=== PATIENT | female | born 1990 | race Caucasian/White ===

== ENCOUNTER → 2020-01-18 12:25 | Outpatient (CLI) | payer MEDICAID, OTHER, SELFPAY ==
--- NOTE | 2020-01-18 12:32 | US_ITS ---
STUDY: FIRST TRIMESTER OBSTETRICAL ULTRASOUND REASON FOR EXAM: Female, 29 years old VIABILITY- hcg 2086 ON 01/17/20 LMP: 12/14/2019 TECHNIQUE: Transvaginal TECHNICAL QUALITY: Adequate. PRIOR ULTRASOUND: None. FINDINGS: There is a gestational sac in the lower uterine segment. The mean sac diameter (MSD) measures 5 mm, indicating an estimated gestational age (EGA) of 5 weeks, 0 days. The gestational sac shape is within normal limits. There is no demonstrated yolk sac. The placenta is non-visualized. There is no demonstrated embryo ( pole). The estimated gestation age (EGA) by LMP is 5 weeks, 0 days. The estimated date of delivery (RASHID) by LMP is 09/19/2020. The estimated gestation age (EGA) by US is 5 weeks, 0 days. The estimated date of delivery (RASHID) by US is 09/19/2020. The uterus measures 11 cm x 7 cm x 5.1 cm. There is no demonstrated uterine fibroid. The cervix is closed. The right ovary measures 4.5 cm x 2.5 cm x 2.7 cm. There is a 1.5 cm x 1.4 cm x 1.4 cm cystic density in the right ovary. There is no visualized right adnexal mass or complex lesion. The left ovary measures 3.6 cm x 2.9 cm x 3.2 cm. There is no left ovarian cyst. There is no visualized left adnexal mass or complex lesion. There is no fluid in the cul de sac. US/Init OB < 14Wks US IMPRESSION: Findings suggestive of an early intrauterine of 5 weeks. Cystic area in the right ovary. Follow-up ultrasound and correlation with serial beta hCGs is recommended. Electronically Signed: Aniceto Cody, at 13:41 EST , Service support ,
== END ==
PROVIDERS: PCP Family Medicine; Visit Provider Obstetrics & Gynecology
DX: O20.0 Threatened abortion (principal)
CPT/HCPCS: 76801

== ENCOUNTER → 2020-01-19 10:30 | Outpatient (CLI) | payer MEDICAID, OTHER, SELFPAY ==
[2020-01-18 13:14] VITALS: BMI 41.1
[2020-01-19 12:48] LABS: hCG Titer Quant., Serum 2921 mIU/mL (1-3)
== END ==
PROVIDERS: PCP Family Medicine; Referring Provider Obstetrics & Gynecology; Visit Provider Obstetrics & Gynecology
DX: O36.80X0 Pregnancy with inconclusive fetal viability, not applicable or unspecified (principal); Z3A.00 Weeks of gestation of pregnancy not specified
CPT/HCPCS: 36415; 84702

== ENCOUNTER → 2020-01-21 09:31 | Outpatient (CLI) | payer MEDICAID, OTHER, SELFPAY ==
[2020-01-18 13:14] VITALS: BMI 41.1
[2020-01-21 10:38] LABS: hCG Titer Quant., Serum 5537 mIU/mL (1-3)
== END ==
PROVIDERS: PCP Family Medicine; Referring Provider Obstetrics & Gynecology; Visit Provider Obstetrics & Gynecology
DX: O36.80X0 Pregnancy with inconclusive fetal viability, not applicable or unspecified (principal)
CPT/HCPCS: 36415; 84702

== ENCOUNTER → 2020-02-05 08:57 | Outpatient (CLI) | payer MEDICAID, OTHER, SELFPAY ==
[2020-01-18 13:14] VITALS: BMI 41.1
--- NOTE | 2020-02-05 08:59 | US_ITS ---
HISTORY: Assess viability. No current hCG available. Comparison study is an ultrasound from January 18, 2020. 105 images and two cine clips. Findings: The first cine clip demonstrates a gestational sac with a decidual reaction within the uterine fundus and the yolk sac, the embryo, and heart motion. The second cine clip demonstrates a similar finding but in the axial plane. Endovaginal imaging only: The uterus measures 12.5 x 6.1 by my measurement of 8.6 cm. Within the uterine fundus there is a gestational sac within the gestational sac there is an embryo and yolk sac. The right ovary measures 3.9 x 2.7 x 2.5 cm. A corpus luteal cyst is suggested on the right ovary. No large masses or fluid collections. The cervix is closed. The left ovary measures 4.3 x 3.4 x 3 cm. Follicles are present on the left ovary. Color Doppler imaging demonstrates flow to both ovaries. [place]-rump length is 11 mm. heart motion mammillated imaging is detected at 159 bpm. Mean sac diameter is 2.6 cm. US/Init OB < 14Wks US IMPRESSION: SLIUP. EGA based on crown-rump length is 7 W-2 D. RASHID is 09/21/2020. at [id number] Reported and signed by: Charlie Juarez MD Electronically Signed: Charlie Juarez MD at 5:27 EST Tel , Service support ,
== END ==
PROVIDERS: PCP Family Medicine; Referring Provider Obstetrics & Gynecology; Visit Provider Obstetrics & Gynecology
DX: Z34.90 Encounter for supervision of normal pregnancy, unspecified, unspecified trimester (principal)
CPT/HCPCS: 76801

== ENCOUNTER → 2022-06-17 | Outpatient (CLI) | payer OTHER, MEDICAID, SELFPAY ==
[2022-06-17 17:37] LABS: hCG Titer Quant., Serum 882 mIU/mL (1-3)
== END | disposition home or self-care (01) ==
LOC: LAB 16:49
PROVIDERS: PCP Family Medicine; Referring Provider Obstetrics & Gynecology; Visit Provider Obstetrics & Gynecology
DX: N91.2 Amenorrhea, unspecified (principal)
CPT/HCPCS: 36415; 84702

== ENCOUNTER → 2022-06-19 | Outpatient (CLI) | payer OTHER, MEDICAID, SELFPAY ==
[2022-06-19 17:50] LABS: hCG Titer Quant., Serum 1634 mIU/mL (1-3)
== END | disposition home or self-care (01) ==
LOC: LAB 16:36
PROVIDERS: PCP Family Medicine; Referring Provider Obstetrics & Gynecology; Visit Provider Obstetrics & Gynecology
DX: N91.2 Amenorrhea, unspecified (principal)
CPT/HCPCS: 36415; 84702

== ENCOUNTER → 2022-06-29 | Outpatient (CLI) | payer OTHER, MEDICAID, SELFPAY ==
--- NOTE | 2022-06-29 12:45 | US_ITS ---
INDICATION: STAT viability EXAMINATION: Ultrasound US OB Transvaginal TECHNIQUE: Transvaginal (for optimal evaluation of the adnexa) pelvic ultrasound was performed. Grayscale, spectral waveform, and color flow Doppler evaluation of the adnexa. COMPARISON: OB ultrasound from February 05, 2020 LMP: [Unknown Beta-hCG: Unknown FINDINGS: UTERUS: 11.3 x 7.1 x 6.7 cm. RIGHT OVARY: 4.6 x 3.9 x 3.5 cm. 2.9 x 2.5 x 2.4 cm cyst with increased peripheral vascularity may relate to a corpus luteal cyst. LEFT OVARY: 9.6 x 10.3 x 8.3 cm. There is a 6.7 x 7.3 x 6.3 cm cyst with somewhat complex appearance demonstrating somewhat irregular borders. FREE FLUID: None. INTRAUTERINE GESTATIONAL SAC(s) (size/shape): Single. Normal shape with mean sac diameter of 1.68 cm.. YOLK SAC: Identified POLE: Identified CRL 0.41 cm. ESTIMATED GESTATION AGE: 6 weeks 2 days. HEART MOTION: 115 bpm. PLACENTA: Not visualized due to age. SUBCHORIONIC HEMORRHAGE: None. US/Transvaginal w/Preg US IMPRESSION: Single live intrauterine . Estimated gestational age is 6 weeks 2 days.. 6.7 x 7.3 x 6.3 cm left ovarian cyst with somewhat complex appearance demonstrating irregular borders. Given size, further assessment with MRI is recommended. However, if MRI cannot be obtained close monitoring. 2.9 x 2.5 x 2.4 cm right ovarian corpus luteal cyst. Electronically Signed: Santana Merchant MD at 14:08 EDT ,
== END | disposition home or self-care (01) ==
LOC: OPUS 12:43
PROVIDERS: PCP Family Medicine; Referring Provider Obstetrics & Gynecology; Visit Provider Obstetrics & Gynecology
DX: O02.1 Missed abortion (principal)
CPT/HCPCS: 76817

== ENCOUNTER → 2022-07-13 | Outpatient (CLI) | payer MEDICAID, SELFPAY ==
[2022-07-15 04:07] LABS: Chlamydia By Nucleic Acid AMP Negative (Negative); Gonococcus By Nucleic Acid AMP Negative (Negative)
[2022-07-17 17:07] LABS: HPV APTIMA, High Risk Negative (Negative)
== END | disposition home or self-care (01) ==
LOC: LABSPEC 12:17
PROVIDERS: PCP Family Medicine; Referring Provider Obstetrics & Gynecology; Visit Provider Obstetrics & Gynecology
DX: Z34.90 Encounter for supervision of normal pregnancy, unspecified, unspecified trimester (principal)
CPT/HCPCS: 87491; 87591; 87624; 88175; G0145

== ENCOUNTER → 2022-07-22 | Outpatient (CLI) | payer OTHER, MEDICAID, SELFPAY ==
--- NOTE | 2022-07-22 07:57 | US_ITS ---
STUDY: FIRST TRIMESTER OBSTETRICAL ULTRASOUND REASON FOR EXAM: Female, 31 years old Rule out miscarriage LMP: May 15, 2022. TECHNIQUE: Transabdominal and Transvaginal TECHNICAL QUALITY: Adequate. PRIOR ULTRASOUND: None. FINDINGS: There is visualization of a single gestational sac in a normal intrauterine position. The mean sac diameter (MSD) measures 4.2 cm, indicating an estimated gestational age (EGA) of 9 weeks, 5 days. The gestational sac shape is within normal limits. There is a visualized yolk sac. The yolk sac measures 3 mm. The placenta is non-visualized. There is visualization of a live embryo. The crown-rump length (CRL) measures 2.9 cm, indicating an estimated gestational age (EGA) of 9 weeks, 3 days. There is demonstrated cardiac activity with a heart rate of 161 bpm. The estimated gestation age (EGA) by LMP is 9 weeks, 5 days. The estimated date of delivery (RASHID) by LMP is February 19, 2023. The estimated gestation age (EGA) by US is 9 weeks, 4 days. The estimated date of delivery (RASHID) by US is February 20, 2023. The uterus measures 14.7 cm x 9.6 cm x 8.3 cm. There is no demonstrated uterine fibroid. The cervix is closed. The right ovary measures 4.8 cm x 3.7 signed by 3.1 cm. There is a 3.3 cm x 2.9 cm x 2.5 cm cyst. There is no visualized right adnexal mass or complex lesion. The left ovary measures 8.4 cm x 9.2 cm x 8.3 cm. There is a 7.5 cm x 8 cm x 7.3 cm cyst. There is no visualized left adnexal mass or complex lesion. There is no fluid in the cul de sac. US/Transvaginal w/Preg US IMPRESSION: Single live intrauterine gestation with a mean gestational age of 9 weeks and 4 days. Bilateral ovarian cysts more prominent on the left side. Electronically Signed: Aniceto Cody MD at 10:13 EDT ,
[2022-07-22 09:35] LABS: Absolute Lymphocyte Count 1.77 X10^3/uL (0.83-4.51); Absolute Neutrophil Count 7.6 X10^3/uL (2.0-7.7); Basophil# 0.07 X10^3/uL; Basophil% 0.7 % (0-1); Eosinophil# 0.08 X10^3/uL; Eosinophils% 0.8 % (0-5); Hematocrit 32.2 % (37-47); Hemoglobin 9.9 g/dL (12.0-15.0); Lymphocyte # 1.77 X10^3/ul (0.83-4.51); Lymphocyte % 17.4 % (19-41); Mean Corp Hgb Conc 30.7 g/dL (32-36); Mean Corpuscular Volume 74.7 fL (81-99); Mean Platelet Vol. 10.4 fl (6.2-12.0); Monocyte# 0.56 X10^3/uL; Monocyte% 5.5 % (0-10); NRBC Flagged by Analyzer 0 % (0-5); Neutrophil # 7.64 X10^3/uL (2.7-7.7); Neutrophil % 75.3 % (47-70); Platelet Count 390 K/mm3 (150-450); RBC Distribution Width CV 18.1 % (11.6-14.6); RBC Distribution Width SD 49.2 fl (35.1-43.9); Red Blood Count 4.31 M/mm3 (4.2-5.4); White Blood Count 10.2 K/mm3 (4.4-11.0)
[2022-07-22 09:47] LABS: Protein, Urine (Random) 15.3 mg/dL (<11.9); Protein:Creat Ratio 133 mg/g CRE (0-200)
[2022-07-22 10:16] LABS: ALB/GLOB Ratio 0.6 RATIO (0.9-2.4); AST(SGOT) 17 U/L (15-37); Alanine Aminotransfer ALT/SGPT 21 U/L (13-56); Albumin, Serum 2.7 g/dL (3.2-5.0); Alkaline Phosphatase 93 U/L (45-117); Anion Gap 7 (5-15); BUN 9 mg/dL (7-18); BUN/Creat Ratio 15.8 RATIO (10-20); Calcium,Total 8.5 mg/dL (8.5-10.1); Chloride 109 mmol/L (98-107); Creatinine, Serum 0.57 mg/dL (0.55-1.02); EST Glomerular Filtration Rate 131 mL/min (>60); Est Glom Filt Rate - Afr Amer 159 mL/min (>60); Globulin 4.6 g/dL (2.2-4.2); Glucose 97 mg/dL (74-106); Potassium 3.6 mmol/L (3.5-5.1); Protein, Total 7.3 g/dL (6.4-8.2); Sodium Level 139 mmol/L (136-145)
[2022-07-22 11:18] LABS: HIV - WCH Non-Reactive (Nonreactive); Hepatitis B Surface Antigen Non-Reactive (Nonreactive); Hepatitis C Antibody Non-Reactive (Nonreactive); Rubella IgG Reactive (Nonreactive); Syphilis Antibodies Non-reactive
== END | disposition home or self-care (01) ==
PROVIDERS: Obstetrics & Gynecology; Registered Nurse; PCP Nurse Practitioner Family; Referring Provider Obstetrics & Gynecology; Visit Provider Obstetrics & Gynecology
DX: O16.1 Unspecified maternal hypertension, first trimester (principal); O20.0 Threatened abortion; Z3A.00 Weeks of gestation of pregnancy not specified
CPT/HCPCS: 36415; 76817; 80053; 82570; 84156; 85025; 86703; 86762; 86780; 86803; 86850; 86900; 86901; 87086; 87088; 87340

== ENCOUNTER → 2022-07-24 | Outpatient (CLI) | payer MEDICAID, SELFPAY ==
[2022-07-24 10:24] LABS: Glucose Challenge Gest 1H 50g 139 mg/dL (70-140)
[2022-07-24 10:33] LABS: NATERA MAILED SPECIMEN
== END | disposition home or self-care (01) ==
LOC: LAB 09:22
PROVIDERS: PCP Nurse Practitioner Family; Referring Provider Obstetrics & Gynecology; Visit Provider Obstetrics & Gynecology
DX: Z34.81 Encounter for supervision of other normal pregnancy, first trimester (principal); Z3A.00 Weeks of gestation of pregnancy not specified
CPT/HCPCS: 82950

== ENCOUNTER 2022-08-10 00:11 | Emergency (ER) | payer MEDICAID, SELFPAY ==
[2022-08-10 00:13] VITALS: BP 148/84; PULSE 102; RESP 16; TEMP 36.2; O2SAT 97; BMI 41.3
[2022-08-10 01:04] LABS: Absolute Lymphocyte Count 3.19 X10^3/uL (0.83-4.51); Absolute Neutrophil Count 8.7 X10^3/uL (2.0-7.7); Basophil# 0.09 X10^3/uL; Basophil% 0.7 % (0-1); Eosinophil# 0.12 X10^3/uL; Eosinophils% 0.9 % (0-5); Hematocrit 33.8 % (37-47); Hemoglobin 10.4 g/dL (12.0-15.0); Lymphocyte # 3.19 X10^3/ul (0.83-4.51); Lymphocyte % 24.9 % (19-41); Mean Corp Hgb Conc 30.8 g/dL (32-36); Mean Corpuscular Hgb 23.1 pg (27.0-32.0); Mean Corpuscular Volume 75.1 fL (81-99); Mean Platelet Vol. 10.3 fl (6.2-12.0); Monocyte# 0.72 X10^3/uL; Monocyte% 5.6 % (0-10); NRBC Flagged by Analyzer 0 % (0-5); Neutrophil # 8.65 X10^3/uL (2.7-7.7); Neutrophil % 67.6 % (47-70); Platelet Count 398 K/mm3 (150-450); RBC Distribution Width CV 18.3 % (11.6-14.6); RBC Distribution Width SD 49.6 fl (35.1-43.9); White Blood Count 12.8 K/mm3 (4.4-11.0)
[2022-08-10 01:10] LABS: Mucous, Urine 0 SEEN /hpf (<or=2+)
[2022-08-10 01:11] LABS: Color, Urine Yellow (Yellow); Glucose, Dipstick Normal (Normal); Ketone-Dipstick Negative (Negative); Leukocyte Esterase-Dipstick 100 /ul (Negative); Nitrite-Dipstick Negative (Negative); Occult Blood-Urine 250 /ul (Negative); Protein-Dipstick 30 mg/dl (Negative); Specific Gravity, Urine 1.025 (1.002-1.030); Urine Bilirubin Dipstick Negative (Negative); Urine Clarity Clear (Clear); Urine Urobilinogen 1 mg/dl (Normal)
[2022-08-10 01:17] LABS: Bacteria 1+ /hpf (None Seen); Red Blood Cells-Urine > 100 SEEN /hpf (0-5); Squamous Epithelial Cells - UA 0-5 SEEN /hpf (5-10); White Blood Cells 10-25 SEEN /hpf (0-5)
--- NOTE | 2022-08-10 01:32 | EDS_ITS ---
HPI HPI - Female History of Present Illness Chief Complaint: Vag Bld, Preg Informant: patient Bleeding Issue: Positive for Vaginal bleeding Onset: Today Context: Sudden Onset Timing: Continuous Associated Symptoms Associated Symptoms: Negative for Dysuria, Frequency or Urgency Test: Positive Narrative Narrative: Patient presents with vaginal bleeding that began tonight. Patient states she was having intercourse tonight and noted some bleeding after intercourse. Patient states it was a large amount of red blood. Patient is approximately 12 weeks . Patient denies any pain or cramping. Patient admits to some nausea but denies any vomiting. Patient denies any fevers or chills. Patient denies any urinary complaints. [facility] Medical History Gestational hypertension Home Medications multivitamin no.47-iron fum 27 mg-folate no.1 1 mg-dha 300 mg capsule (PNV-DHA) 1 cap PO DAILY 02/20/20 [History Last Taken Unknown] promethazine 12.5 mg tablet 12.5 mg PO TID PRN nausea and vomiting #60 tabs 06/18/22 [Rx Last Taken Unknown] ondansetron 4 mg disintegrating tablet 4 mg PO Q6H #30 tabs 06/26/22 [Rx Last Taken Unknown] pyridoxine (vitamin B6) 25 mg tablet 25 mg PO DAILY PRN nausea and vomiting 07/08/22 [History Last Taken Unknown] nifedipine 30 mg tablet,extended release 30 mg PO DAILY #30 tabs 07/13/22 [Rx Last Taken Unknown] Allergy/AdvReac Type Severity Reaction Status Date / Time No Known Allergies Allergy Verified 08/10/22 00:12 Surgical History S/P laparoscopy S/P tonsillectomy [place] teeth extracted Social History adopted: No household members: significant other and family number of children: 4 current occupational status: unemployed pets and animals: Yes pets and animals: dog(s) history of recent travel: No sexually active: Yes Smoking Status: Never smoker alcohol intake: never substance use type: does not use well-balanced diet: daily or most days caffeine: No eating out: rarely or never during the past year weight has: decreased > 10 lbs what type of physical activity do you participate in: walking frequency: daily duration: 60-90 minutes/day jose daniel/anglican: Taoist seatbelt use: always do you feel safe at home: Yes additional social history: [employer]- [employer] [facility] Patient is FIRE ENGINE OPERATOR ROS ROS ED Constitutional Constitutional ED: Denies chills or fever(s) Eyes Eyes: Denies blurry vision or change in vision ENT ENT ED: Denies rhinorrhea or sore throat Cardiovascular Cardiovascular: Denies chest pain or palpitations Respiratory/Chest Respiratory/Chest: Denies cough or dyspnea Gastrointestinal Gastrointestinal: Reports nausea; Denies vomiting Genitourinary Genitourinary ED: Denies dysuria or hematuria Musculoskeletal Musculoskeletal: Denies back pain or neck pain Integumentary Denies abscess or rash Neurologic Neurologic: Denies headache(s) or weakness Allergic/Immunologic Allergic/Immunologic ED: Denies mouth swelling or urticaria EXAM Physical Exam Const Vital Signs: 08/10/22 00:13 Temperature 97.2 F L Temperature Source Temporal Pulse Rate 102 H Respiratory Rate 16 Blood Pressure 148/84 H Blood Pressure Mean 105 Pulse Ox 97 Positive well nourished, well developed and obese General Appearance ED: well developed and NAD Nutritional Appearance: obese HEENT Reports moist mucous membranes Neck supple and no JVD Resp normal respiratory effort and clear to auscultation bilaterally Cardio regular rate and regular rhythm GI normal to inspection, nondistended, normoactive bowel sounds and non-tender Palpation: soft Extremity normal to inspection General Extremety ED: Negative for edema or tenderness General Extremity: Negative for edema Neuro oriented x3, CN's II-XII intact bilaterally and no sensory deficits noted Sensorium / Orientation: alert Motor Exam: strength 5/5 throughout Psych mental status grossly normal Skin no rashes or lesions noted MDM MDM MDM Narrative Medical decision making narrative: Differential diagnosis includes threatened miscarriage, placenta previa, spontaneous miscarriage, and urinary tract infection. CBC will be obtained to assess for leukocytosis and anemia. Urinalysis will be obtained to assess for urinary tract infection. Serum quantitative hCG will be obtained to assess for status. Lab Data Attestation: I reviewed the patient's lab results. Lab results narrative: CBC was reviewed. There is a mild leukocytosis of 12.8. Hemoglobin was 10.4 and hematocrit was 33.8. Platelets were normal. Quantitative hCG was reviewed and was 59,341. Urinalysis shows a leukocyte esterase of 100. There were greater than 100 red blood cells. There were 10-25 white blood cells. There is 1+ bacteria. Urine culture will be obtained. Labs: Laboratory Results - last 24 hr 08/10/22 08/10/22 00:50 01:04 WBC 12.8 H RBC 4.50 Hgb 10.4 L Hct 33.8 L MCV 75.1 L MCH 23.1 L MCHC 30.8 L RDW Std Deviation 49.6 H RDW Coeff of Del 18.3 H Plt Count 398 MPV 10.3 Immature Gran % (Auto) 0.300 Neut % (Auto) 67.6 Lymph % (Auto) 24.9 [place] % (Auto) 5.6 Eos % (Auto) 0.9 Baso % (Auto) 0.7 Absolute Neuts (auto) 8.7 H Absolute Lymphs (auto) 3.19 Nucleated RBC % 0 HCG, Quant 28210 H Urine Color Yellow Urine Clarity Clear Urine pH 6.0 Ur Specific [place] 1.025 Urine Protein 30 H Urine Glucose (UA) Normal Urine Ketones Negative Urine Occult Blood 250 H Urine Nitrite Negative Urine Bilirubin Negative Urine Urobilinogen 1 H Ur Leukocyte Esterase 100 H Urine RBC > 100 SEEN Urine WBC 10-25 SEEN Ur Squamous Epith Cells 0-5 SEEN Urine Bacteria 1+ Urine Mucus 0 SEEN Treatment and Re-Evaluation Narrative: heart tones were obtained and were 129. Patient was advised of her findings. Patient was instructed on complete vaginal rest. Patient was instructed to follow-up with her FINANCIAL COMPLIANCE MANAGER in 3 to 5 days. Patient understood and was agreeable with the plan. All questions were answered. Discharge Plan Triage Chief Complaint: Vag Bld, Preg ED Provider: Alec Plascencia Dx/Rx/DC Orders Clinical Impression: Threatened miscarriage Instructions: ED Possible Miscarriage ... Prescriptions: No Action PNV-DHA 27 mg iron-1 mg -300 mg capsule 1 cap PO DAILY pyridoxine (vitamin B6) 25 mg tablet 25 mg PO DAILY PRN (Reason: nausea and vomiting) nifedipine 30 mg tablet extended release 30 mg PO DAILY Qty: 30 12RF ondansetron 4 mg tablet,disintegrating 4 mg PO Q6H Qty: 30 0RF promethazine 12.5 mg tablet 12.5 mg PO TID PRN (Reason: nausea and vomiting) Qty: 60 1RF Primary Care Provider: Cici Lee Referrals: Cici Lee, RECEPTIONIST SCHEDULER-C [Primary Care Provider] - 3-5 Days Disposition Disposition: Home, Self Care
[2022-08-10 02:27] VITALS: BP 129/78; PULSE 89; RESP 18; O2SAT 99
== END 2022-08-10 02:28 | disposition home or self-care (01) ==
PROVIDERS: Emergency Provider Emergency Medicine; PCP Nurse Practitioner Family; Visit Provider Emergency Medicine
DX: O20.0 Threatened abortion (principal); O99.891 Other specified diseases and conditions complicating pregnancy; R11.0 Nausea; Z3A.12 12 weeks gestation of pregnancy
CPT/HCPCS: 76801; 81001; 84702; 85025; 87086; 87088; 99283; A4216

== ENCOUNTER → 2022-08-10 | Outpatient (CLI) | payer MEDICAID, SELFPAY ==
--- NOTE | 2022-08-10 14:51 | US_ITS ---
ACR Level 3 findings have been noted. An addendum which confirms receipt of the report will follow. INDICATION: viability STAT EXAMINATION: Ultrasound US OB Less Than 14 Weeks TECHNIQUE: Transabdominal pelvic ultrasound was performed. Grayscale, spectral waveform, and color flow Doppler evaluation of the adnexa. COMPARISON: 02/05/2020, 06/29/2022, 07/22/2022 LMP: Unknown Beta-hCG: Unknown FINDINGS: UTERUS: 14.3 x 10.2 x 8.6 cm. The cervix appears closed RIGHT OVARY: 4.5 x 4.3 x 3.2 cm.. 3.2 x 2.8 x 2.8 cm cyst. LEFT OVARY: 9.6 x 10.0 x 7.0 cm. 8.7 x 9.1 x 6.0 cm cystic mass with multiple mural nodules/layering debris. FREE FLUID: None. INTRAUTERINE GESTATIONAL SAC(s) (size/shape): Single. 5.9 cm. POLE: Identified CRL 6.24 cm. ESTIMATED GESTATION AGE: 12 weeks and 4 days. HEART MOTION: 155 bpm. PLACENTA: Not visualized due to age. SUBCHORIONIC HEMORRHAGE: None. AMNIOTIC FLUID: Qualitatively normal. US/Init OB < 14Wks US IMPRESSION: Increased size of left ovarian cystic mass compared to 06/29/2022, and probably mildly increased compared to 07/22/2022. Single live intrauterine . Estimated gestational age is 12 weeks and 4 days. Electronically Signed: Tc Linton MD at 16:23 EDT ,
== END | disposition home or self-care (01) ==
LOC: US 14:51
PROVIDERS: PCP Nurse Practitioner Family; Referring Provider Obstetrics & Gynecology; Visit Provider Obstetrics & Gynecology
DX: O20.0 Threatened abortion (principal); Z3A.00 Weeks of gestation of pregnancy not specified
CPT/HCPCS: 76801

== ENCOUNTER 2022-10-11 19:53 | Outpatient (CLI) | payer MEDICAID, SELFPAY ==
[2022-10-11] VITALS (9 sets, daily range): BP systolic 130–147; BP diastolic 75–86; PULSE 79–89; BMI 40.9
[2022-10-11 21:36] LABS: AST(SGOT) 9 U/L (15-37); Alanine Aminotransfer ALT/SGPT 12 U/L (13-56); EST Glomerular Filtration Rate 199 mL/min (>60); Est Glom Filt Rate - Afr Amer 241 mL/min (>60); Estimated Creatinine Clearance 190.77 ml/min; Uric Acid 3.7 mg/dL (2.6-6.0)
[2022-10-11 21:41] LABS: Protein:Creat Ratio 178 mg/g CRE (0-200)
[2022-10-11 21:42] LABS: Hemoglobin 9.1 g/dL (12.0-15.0); Mean Corp Hgb Conc 31.4 g/dL (32-36); Mean Corpuscular Hgb 24.9 pg (27.0-32.0); Mean Corpuscular Volume 79.2 fL (81-99); Mean Platelet Vol. 10.1 fl (6.2-12.0); Platelet Count 350 K/mm3 (150-450); RBC Distribution Width CV 16.4 % (11.6-14.6); Red Blood Count 3.66 M/mm3 (4.2-5.4); White Blood Count 12.2 K/mm3 (4.4-11.0)
--- NOTE | 2022-10-12 03:13 | OB.TRI.PN_ITS ---
Progress Notes Date of Service: 10/11/22 Progress Note: Patient presents for triage evaluation secondary to elevated bp at home FHT: 130 [place]: no Contractions Assessment and plan: FHT obtained, normal pre e labs, appropriate BP, reassuring maternal and status patient discharged to home to follow-up in office-call for appt. See problem list details for additional plan information. Laboratory Studies: Laboratory Tests 10/11/22 Range/Units 20:55 WBC 12.2 H (4.4-11.0) K/mm3 RBC 3.66 L (4.2-5.4) M/mm3 Hgb 9.1 L (12.0-15.0) g/dL Hct 29.0 L (37-47) % MCV 79.2 L (81-99) fL MCH 24.9 L (27.0-32.0) pg MCHC 31.4 L (32-36) g/dL RDW Std Deviation 47.0 H (35.1-43.9) fl RDW Coeff of Del 16.4 H (11.6-14.6) % Plt Count 350 (150-450) K/mm3 MPV 10.1 (6.2-12.0) fl Creatinine 0.40 L (0.55-1.02) mg/dL Estim Creat Clear Calc 190.77 ml/min Est GFR (MDRD) Af Amer 241 (>60) mL/min Est GFR (MDRD) Non-Af 199 (>60) mL/min Uric Acid 3.7 (2.6-6.0) mg/dL AST 9 L (15-37) U/L ALT 12 L (13-56) U/L U Random Total Protein 28.0 H (<11.9) mg/dL Urine Creatinine 157.00 (NO RANGE EST.) mg/dL Protein/Creatinin Ratio 178 (0-200) mg/g CRE Charges/Coding Multi Select Codes Urinary/Genital Urinary/Genital CPT Codes: No Charge Assessment & Plan (1) Anemia affecting , antepartum: COMMENT: Fe OTC alternate PNV, rpt CBC 4 wks not tolerating currently iron supplement. recommended floradix. (2) Ovarian cyst affecting in first trimester, antepartum: COMMENT: large ovarian mass with septations, increasing in size to see MFM then possibly early childhood lead teacher onc pending their recommendations. (3) History of shoulder dystocia: COMMENT: with first delivery 10lbs, had 2 after without SD 9lb 8 lbs. 1 cs then for breech. (4) Hx of section: COMMENT: breech, pre e, would like TOLAC if able (5) Hx of depression, currently : COMMENT: x 2 (6) Supervision of high-risk : COMMENT: PRR , RASHID 02/19/23, boy, Leonardo Batista Eleanor, [place] BF- Thomas (7) : QUALIFIERS: Weeks of gestation: 20 weeks Qualified Code(s): Z3A.20 - 20 weeks gestation of COMMENT: nl anatomy (needs another scan for more views), NIPT low risk, discussed carrier testing (8) Hypertension affecting in first trimester: COMMENT: Hx of PEC with last , start procardia, recommend 81mg ASA 14 weeks. will obtain PEC baseline labs with NOB. ordered EKG, P:C ration, CMP (9) Nausea/vomiting in : COMMENT: will trial zofran 4mg for during the day every 6 hours. declines IV hydration today. able to keep liquids down and light meals. (10) Anxiety and depression: COMMENT: stable no meds
== END 2022-10-11 22:28 | disposition home or self-care (01) ==
LOC: WPOUT 20:16 → WP 20:16
PROVIDERS: Referring Provider Advanced Practice Midwife; Visit Provider Advanced Practice Midwife
DX: O16.2 Unspecified maternal hypertension, second trimester (principal); O99.012 Anemia complicating pregnancy, second trimester; O34.82 Maternal care for other abnormalities of pelvic organs, second trimester; N83.209 Unspecified ovarian cyst, unspecified side; O21.9 Vomiting of pregnancy, unspecified; O99.342 Other mental disorders complicating pregnancy, second trimester; F41.9 Anxiety disorder, unspecified; F32.A Depression, unspecified; Z3A.20 20 weeks gestation of pregnancy; O99.891 Other specified diseases and conditions complicating pregnancy
CPT/HCPCS: 59050; 82565; 82570; 84156; 84450; 84460; 84550; 85027

== ENCOUNTER → 2022-10-26 | Outpatient (CLI) | payer MEDICAID, SELFPAY ==
--- NOTE | 2022-10-26 12:16 | EKG12_ITS ---
Test Reason : PALPITATIONS Blood Pressure : / mmHG Vent. Rate : 092 BPM Atrial Rate : 092 BPM P-R Int : 150 ms QRS Dur : 102 ms QT Int : 358 ms P-R-T Axes : 064 054 034 degrees QTc Int : 442 ms Normal sinus rhythm Normal ECG Confirmed by SABRINA MORA, EDDIE ([id number]), editor sound KIMBERLY GARCIA ([id number]) on 10/27/2022 1:59:27 PM Referred By: Lisa Del Valle Confirmed By:EDDIE BENNETT MD
[2022-10-26 12:56] LABS: Absolute Lymphocyte Count 2.09 X10^3/uL (0.83-4.51); Absolute Neutrophil Count 10.5 X10^3/uL (2.0-7.7); Basophil# 0.09 X10^3/uL; Basophil% 0.7 % (0-1); Eosinophil# 0.12 X10^3/uL; Eosinophils% 0.9 % (0-5); Hematocrit 30.1 % (37-47); Hemoglobin 9.3 g/dL (12.0-15.0); Lymphocyte # 2.09 X10^3/ul (0.83-4.51); Lymphocyte % 15.3 % (19-41); Mean Corp Hgb Conc 30.9 g/dL (32-36); Mean Corpuscular Hgb 24.5 pg (27.0-32.0); Mean Corpuscular Volume 79.2 fL (81-99); Mean Platelet Vol. 9.8 fl (6.2-12.0); Monocyte# 0.71 X10^3/uL; Monocyte% 5.2 % (0-10); NRBC Flagged by Analyzer 0 % (0-5); Neutrophil # 10.54 X10^3/uL (2.7-7.7); Neutrophil % 77.2 % (47-70); Platelet Count 367 K/mm3 (150-450); RBC Distribution Width CV 15.9 % (11.6-14.6); RBC Distribution Width SD 45.1 fl (35.1-43.9); White Blood Count 13.6 K/mm3 (4.4-11.0)
[2022-10-26 13:26] LABS: Ferritin 5 ng/mL (8-252); Iron Binding Capacity,Total 497 ug/dL (250-450)
== END | disposition home or self-care (01) ==
LOC: PSN 12:16
PROVIDERS: Advanced Practice Midwife; Registered Nurse; PCP Nurse Practitioner Family; Referring Provider Nurse Practitioner Women's Health; Visit Provider Nurse Practitioner Women's Health
DX: O99.019 Anemia complicating pregnancy, unspecified trimester (principal); O99.891 Other specified diseases and conditions complicating pregnancy; R00.2 Palpitations; Z3A.00 Weeks of gestation of pregnancy not specified
CPT/HCPCS: 36415; 82728; 83550; 85025; 93005

== ENCOUNTER 2022-11-16 10:38 | Outpatient (CLI) | payer MEDICAID, SELFPAY ==
[2022-11-16 10:40] VITALS: BP 133/88; PULSE 87; RESP 16; TEMP 36
[2022-11-16] MEDS: 0.9% NaCl Peripheral Flush Adult/Peds IV (10:52)
[2022-11-16] MEDS: Iron Sucrose Complex 300 MG in 0.9% Normal Saline (250mL Bag) 250 ML 177 MG IV (11:16)
[2022-11-16] MEDS: 0.9% NaCl IVPB Med Flush (250 mL) 15 ML IV (11:16)
== END 2022-11-16 10:39 | disposition home or self-care (01) ==
PROVIDERS: PCP Nurse Practitioner Family; Referring Provider Advanced Practice Midwife; Visit Provider Advanced Practice Midwife
DX: D64.9 Anemia, unspecified (principal)
CPT/HCPCS: 96365; 96366; J1756; J7050; A4216

== ENCOUNTER 2022-11-23 10:43 | Outpatient (CLI) | payer MEDICAID, SELFPAY ==
[2022-11-23 10:53] VITALS: BP 141/85; PULSE 108; RESP 16; TEMP 36.3; O2SAT 94; BMI 40.6
[2022-11-23] MEDS: 0.9% NaCl Peripheral Flush Adult/Peds IV (11:03)
[2022-11-23] MEDS: 0.9% NaCl IVPB Med Flush (250 mL) 15 ML IV (11:03)
[2022-11-23] MEDS: Iron Sucrose Complex 300 MG in 0.9% Normal Saline (250mL Bag) 250 ML 177 MG IV (11:19)
[2022-11-23 13:14] VITALS: BP 131/79; PULSE 100; RESP 16; TEMP 36.8; O2SAT 97
== END 2022-11-23 10:44 | disposition home or self-care (01) ==
LOC: MEDOUTP 10:43
PROVIDERS: Referring Provider Advanced Practice Midwife; Visit Provider Advanced Practice Midwife
DX: D64.9 Anemia, unspecified (principal)
CPT/HCPCS: 96365; 96366; J1756; J7050; A4216

== ENCOUNTER 2022-11-30 10:49 | Outpatient (CLI) | payer OTHER, MEDICAID, SELFPAY ==
[2022-11-30] MEDS: 0.9% NaCl Peripheral Flush Adult/Peds IV (11:03)
[2022-11-30] MEDS: 0.9% NaCl IVPB Med Flush (250 mL) 15 ML IV (11:04)
[2022-11-30 11:06] VITALS: BP 122/74; PULSE 87; RESP 16; TEMP 36.3; O2SAT 95; BMI 38.7
[2022-11-30] MEDS: Iron Sucrose Complex 300 MG in 0.9% Normal Saline (250mL Bag) 250 ML 177 MG IV (11:33)
[2022-11-30 13:07] VITALS: BP 131/74; PULSE 78; RESP 16; TEMP 36.2; O2SAT 97
== END 2022-11-30 10:50 | disposition home or self-care (01) ==
LOC: MEDOUTP 10:49
PROVIDERS: Referring Provider Advanced Practice Midwife; Visit Provider Advanced Practice Midwife
DX: D64.9 Anemia, unspecified (principal)
CPT/HCPCS: 96365; 96366; J1756; J7050; A4216

== ENCOUNTER 2022-12-02 12:35 | Outpatient (CLI) | payer MEDICAID, SELFPAY ==
[2022-12-02] VITALS (11 sets, daily range): BP systolic 135–140; BP diastolic 84–86; PULSE 85–97; TEMP 36.9; O2SAT 95–97; BMI 42.1
[2022-12-02 14:30] LABS: Bedside Glucose 72 mg/dL (74-106)
--- NOTE | 2022-12-05 10:46 | OB.TRI.HP_ITS ---
HPI - General HPI Narrative SHEILA TREJO, is a 32 y/o @ 28 weeks 5 days who presents to L&D with the complaint of feeling more short of breath walking up stairs and wanted to get checked out. She denies chest pain or resting shortness of breath. Maternal Data Information RASHID Calculator Estimated Delivery Date Method Current WG Current Estimate 02/19/23 LMP (Certain) 29w 1d Other Estimates 02/19/23 Ultrasound #1 29w 1d PFSH PFSH Medical History (Updated 12/01/22 @ 14:40 by Marian Miller LPN) Gestational hypertension Home Medications multivitamin no.47-iron fum 27 mg-folate no.1 1 mg-dha 300 mg capsule (PNV-DHA) 1 cap PO DAILY 02/20/20 [History Last Taken 10/11/22] ondansetron 4 mg disintegrating tablet 4 mg PO Q6H #30 tabs 06/26/22 [Rx Last Taken Unknown] nifedipine 30 mg tablet,extended release 30 mg PO DAILY #30 tabs 07/13/22 [Rx Last Taken 12/02/22] promethazine 12.5 mg tablet 12.5 mg PO TID PRN nausea and vomiting #60 tabs 09/07/22 [Rx Last Taken 12/02/22] Allergy/AdvReac Type Severity Reaction Status Date / Time No Known Allergies Allergy Verified 12/02/22 13:03 Surgical History (Updated 12/01/22 @ 14:38 by Marian Miller LPN) History of left salpingo-oophorectomy S/P laparoscopy S/P tonsillectomy [place] teeth extracted Social History adopted: No household members: significant other and family number of children: 4 current occupational status: unemployed pets and animals: Yes pets and animals: dog(s) history of recent travel: No sexually active: Yes Smoking Status: Never smoker alcohol intake: never substance use type: does not use well-balanced diet: daily or most days caffeine: No eating out: rarely or never during the past year weight has: decreased > 10 lbs what type of physical activity do you participate in: walking frequency: daily duration: 60-90 minutes/day jose daniel/rastafarian: Spiritism seatbelt use: always do you feel safe at home: Yes additional social history: [facility] Patient is TELESALES CONSULTANT History 6 Elective abortions Hx Para 4 Spontaneous abortions 1 Hx # Term Pregnancies Ectopic pregnancies Hx # Pregnancies Multiple births # of living children 4 Past Pregnancies Del. Date Name GA/Weeks Outcome Route Bth Weight Infant Gen Labor Lgth Anesthesia Del Locatn Provider FOB 04/25/12 Jacquelyn 39 live - full term 10lbs 1oz Female epidural [place] [facility] 04/03/13 Kilan 39 live - full term 9lbs 7oz Male epi dural [place] [facility] 01/25/16 miscarriage 11wks(baby 8wks) 08/12/17 Elleanor 38 live - full term 8lbs 3oz [facility] 08/26/20 Haven 37 live - full term 7#4oz Female spinal [facility] Delivery Date: 04/25/12 Last Updated by: Aidee Garcia Gestational hypertension, shoulder dystocia Delivery Date: 04/03/13 Last Updated by: Aidee Garcia Gestational hypertension Delivery Date: 08/12/17 Last Updated by: Aidee Garcia Gestational hypertension Delivery Date: 08/26/20 Last Updated by: Melani Laird cs- breech, pre eclampsia, was supposed to have a tubal but it wasn't done . Visit Details Expected Delivery Route/Plan TOLAC if labor but planning RLTCS and BS title 19 signed patient counseled regarding risks/benefits of trial of labor versus repeat . ACOG/uptodate education given to patient. [] % likelihood of success per calculator TOLAC consent form signed: [] Plans Covid status: [] Flu vaccine: [] Tdap vaccine: [] Rhogam: [] LARC form signed: [] Problem list reviewed and updated with the most current plan of care details and appropriate orders placed. Relevant counseling for the gestational age provided. Continue routine care and follow up unless otherwise noted in visit notes/problem list details OB Flowsheet Initial Weight: Not Recorded Date -?-?-?-?-?-?-?-?-?-?-?-?- EGA Weight BP Urine Prot -?-?-?-?-?-?-?-?-?-?-?-?- Glucose FHR FuHt Pres Dilation -?-?-?-?-?-?-?-?-?-?-?-?- Effaced St Visit Note 07/13/22 -?-?-?-?-?-?-?-?-?-?-?-?- 8w 3d 253 lb 8 oz 135/98 -?-?-?-?-?-?-?-?-?-?-?-?- 160 -?-?-?-?-?-?-?-?-?-?-?-?- SM- CRL cons wit h LMP SM- CRL cons with LMP, start procardia 08/13/22 -?-?-?-?-?-?-?-?-?-?-?-?- 12w 6d 252 lb 8 oz 132/83 Nega tive -?-?-?-?-?-?-?-?-?-?-?-?- Negative 155 -?-?-?-?-?-?-?-?-?-?-?-?- JV- pt still hav ing discomfort with the ovarian mass and it is enlarging. Pt will be seeing MFM soon. They received the referral for scan and recommendations and will be calling her soon. If needs surgery, recommend INCUBATOR MACHINE OPERATOR onc collaboration. bedside scan shows good movement but unable to visualize the ovary on the small ultrasound today. will prescribe pain medication until can get in with mfm but if pain increases past a 6,needs to call us sarbjit. 08/21/22 -?-?-?-?-?-?-?-?-?-?-?-?- 14w 0d 251 lb 140/85 Negative -?-?-?-?-?-?-?-?-?-?-?-?- Negative 150 -?-?-?-?-?-?-?-?-?-?-?-?- SM- patient rece ntly postop- had to have robot converted to open procedure, increased pain this morning. tolerating overall. 09/07/22 -?-?-?-?-?-?-?-?-?-?-?-?- 16w 3d 248 lb 2 oz 124/86 Trac e -?-?-?-?-?-?-?-?-?-?-?-?- Negative 145 -?-?-?-?-?-?-?-?-?-?-?-?- LC- no vb/crampi ng. pain managed. healing well. cont nausea, refill sent. discussed and declines afp. [facility] anatomy on 09/28. 10/07/22 -?-?-?-?-?-?-?-?-?-?-?-?- 20w 5d 253 lb 6 oz 135/87 Nega tive -?-?-?-?-?-?-?-?-?-?-?-?- Negative 154 -?-?-?-?-?-?-?-?-?-?-?-?- JV- needs follow up anatomy. no complaints today. 10/19/22 -?-?-?-?-?-?-?-?-?-?-?-?- 22w 3d 254 lb 130/80 Negative -?-?-?-?-?-?-?-?-?-?-?-?- Negative 148 -?-?-?-?-?-?-?-?-?-?-?-?- MH-No VB, LOF. D enies headache, vision changes. Is now having palpitations, EKG ordered. 11/02/22 -?-?-?-?-?-?-?-?-?-?-?-?- 24w 3d 257 lb 6 oz 131/75 Nega tive -?-?-?-?-?-?-?-?-?-?-?-?- Negative 140 -?-?-?-?-?-?-?-?-?-?-?-?- JV- no lof, vagi nal bleeding, or dec fm. no complaints. glucola ordered. 12/01/22 -?-?-?-?-?-?-?-?-?-?-?-?- 28w 4d 263 lb 142/86 134/86 Negative -?-?-?-?-?-?-?-?-?-?-?-?- Negative 140 -?-?-?-?-?-?-?-?-?-?-?-?- SM- no vb lof go od fm no regular ctx title 19 signed ROS Constitutional Constitutional: Reports systems reviewed and no addt'l complaints, except as documented Gastrointestinal Gastrointestinal: Denies bloating, constipation, cramping, diarrhea, nausea or vomiting Genitourinary Genitourinary: Reports other Details: Denies vaginal odor, vaginal bleeding, or vaginal discharge ; Denies difficulty urinating or flank pain NST FHR Rate Baby A Baseline: 140 Variability:: Moderate Accelerations:: 15 x 15 Decelerations:: None NST Reactive:: Yes FHR Category:: Category I Assessment & Plan (1) Intermittent palpitations: COMMENT: EKG WNL. Increase fluids. (2) Anemia affecting , antepartum: COMMENT: Fe OTC alternate PNV, rpt CBC 4 wks not tolerating currently iron supplement. recommended floradix. (3) Ovarian cyst affecting in first trimester, antepartum: COMMENT: large ovarian mass with septations, increasing in size to see MFM then possibly diet aid onc pending their recommendations. 08/18/22 Dr. Rivas Left salpingo-oophorectomy. (4) History of shoulder dystocia: COMMENT: with first delivery 10lbs, had 2 after without SD 9lb 8 lbs. 1 cs then for breech. (5) Hx of section: COMMENT: breech, pre e, plan RLTCS and BS, TOLAC is spontaneous labor. deliver 38 (6) Hx of depression, currently : COMMENT: x 2 (7) Supervision of high-risk : QUALIFIERS: Trimester: second trimester Qualified Code(s): O09.92 - Supervision of high risk , unspecified, second trimester COMMENT: PRR , RASHID 02/19/23, [facility]ia [facility]- Leonardo Paul Eleanor, [place] [facility]. RCS/Right Salpingectomy scheduled for 02/05/23. (8) : QUALIFIERS: Weeks of gestation: 28 weeks Qualified Code(s): Z3 A.28 - 28 weeks gestation of COMMENT: nl anatomy, NIPT low risk, discussed carrier testing (9) Hypertension affecting in first trimester: COMMENT: Hx of PEC with last ,on procardia, recommend 81mg ASA 14 weeks. baseline labs done. plan weekly nsts and weekly bpps from 32 on, deliver 38 (10) Nausea/vomiting in : COMMENT: will trial zofran 4mg for during the day every 6 hours. declines IV hydration today. able to keep liquids down and light meals. (11) Anxiety and depression: COMMENT: stable no meds PLAN: Plan shortness of breath- cbc shows mild anemia . pulse ox is in the high 90's. NST appropriate for gestational age, cat 1 reactive recommend starting iron supplement air hunger of discussed with patient per nurse ok to dc to home rto in one week. Charges/Coding Multi Select Codes Urinary/Genital Urinary/Genital CPT Codes: 63817-90 non-stress test Interp
== END 2022-12-02 13:50 | disposition home or self-care (01) ==
LOC: WPOUT 12:36 → WP 12:37
PROVIDERS: Visit Provider Obstetrics & Gynecology
DX: O99.891 Other specified diseases and conditions complicating pregnancy (principal); O13.3 Gestational [pregnancy-induced] hypertension without significant proteinuria, third trimester; Z3A.28 28 weeks gestation of pregnancy; R00.2 Palpitations; O99.013 Anemia complicating pregnancy, third trimester; O99.343 Other mental disorders complicating pregnancy, third trimester; F41.9 Anxiety disorder, unspecified; F32.A Depression, unspecified; R06.02 Shortness of breath
CPT/HCPCS: 59025; 59050; 82962; 99221; G0378

== ENCOUNTER 2022-12-10 13:05 | Outpatient (CLI) | payer MEDICAID, SELFPAY ==
[2022-12-10] VITALS (12 sets, daily range): BP systolic 129–139; BP diastolic 71–87; PULSE 85–105; BMI 42.4
[2022-12-10 13:45] LABS: Hemoglobin 10.2 g/dL (12.0-15.0); Mean Corpuscular Hgb 25.7 pg (27.0-32.0); Mean Corpuscular Volume 85.6 fL (81-99); Mean Platelet Vol. 9.6 fl (6.2-12.0); POSITIVE MORPHOLOGY YES; Platelet Count 312 K/mm3 (150-450); RBC Distribution Width CV 20.8 % (11.6-14.6); RBC Distribution Width SD 63.6 fl (35.1-43.9); Red Blood Count 3.97 M/mm3 (4.2-5.4); White Blood Count 10.7 K/mm3 (4.4-11.0)
[2022-12-10 13:50] LABS: Scan Indicated on CBC? Y/N YES- FLAGS NOTED
[2022-12-10 13:59] LABS: AST(SGOT) 4 U/L (15-37); Alanine Aminotransfer ALT/SGPT 9 U/L (13-56); Creatinine, Serum 0.52 mg/dL (0.55-1.02); EST Glomerular Filtration Rate 146 mL/min (>60); Est Glom Filt Rate - Afr Amer 177 mL/min (>60); Estimated Creatinine Clearance 146.75 ml/min; Protein, Urine (Random) 31.3 mg/dL (<11.9); Protein:Creat Ratio 310 mg/g CRE (0-200); Uric Acid 4.4 mg/dL (2.6-6.0)
--- NOTE | 2022-12-10 14:56 | OB.TRI.HP_ITS ---
HPI - General General Date of Admission: 12/10/22 HPI Narrative SHEILA TREJO, is a 32 F who presents with two episodes of syncope and mild headache. upon evaluation, bps are normal. preeclampsia labs are drawn the only abnromality was proteinuria that is new. headache resolved with tylenol. patient denies any vb or abnormal discharge. Maternal Data Information RASHID Calculator Estimated Delivery Date Method Current WG Current Estimate 02/19/23 LMP (Certain) 30w 2d Other Estimates 02/19/23 Ultrasound #1 30w 2d [facility] Medical History (Updated 12/10/22 @ 14:[address] Heide Vail MD) Gestational hypertension Home Medications multivitamin no.47-iron fum 27 mg-folate no.1 1 mg-dha 300 mg capsule (PNV-DHA) 1 cap PO DAILY 02/20/20 [History Last Taken 10/11/22] nifedipine 30 mg tablet,extended release 30 mg PO DAILY #30 tabs 07/13/22 [Rx Last Taken 12/13/22] promethazine 12.5 mg tablet 12.5 mg PO TID PRN nausea and vomiting #60 tabs 09/07/22 [Rx Last Taken 12/10/22 05:00] Allergy/AdvReac Type Severity Reaction Status Date / Time No Known Allergies Allergy Verified 12/13/22 09:26 Surgical History (Updated 12/01/22 @ 14:38 by Marian Miller LPN) History of left salpingo-oophorectomy S/P laparoscopy S/P tonsillectomy [place] teeth extracted Social History adopted: No household members: significant other and family number of children: 4 current occupational status: unemployed pets and animals: Yes pets and animals: dog(s) history of recent travel: No sexually active: Yes Smoking Status: Never smoker alcohol intake: never substance use type: does not use well-balanced diet: daily or most days caffeine: No eating out: rarely or never during the past year weight has: decreased > 10 lbs what type of physical activity do you participate in: walking frequency: daily duration: 60-90 minutes/day jose daniel/quaker: Pentecostalism seatbelt use: always do you feel safe at home: Yes additional social history: [facility] Patient is APPOINTMENT SPECIALIST History 6 Elective abortions Hx Para 4 Spontaneous abortions 1 Hx # Term Pregnancies Ectopic pregnancies Hx # Pregnancies Multiple births # of living children 4 Past Pregnancies Del. Date Name GA/Weeks Outcome Route Bth Weight Gen Labor Lgth Anesthesia Del Locatn Provider FOB 04/25/12 Jacquelyn 39 live - full term 10lbs 1oz Female epidural [place] [facility] 04/03/13 Kilan 39 live - full term 9lbs 7oz Male epi dural [place] [facility] 01/25/16 miscarriage 11wks(baby 8wks) 08/12/17 Elleanor 38 live - full term 8lbs 3oz Female epidural [place] [facility] 08/26/20 [place] 37 live - full term 7#4oz Female spinal P[facility]rene [facility] Delivery Date: 04/25/12 Last Updated by: Aidee Garcia Gestational hypertension, shoulder dystocia Delivery Date: 04/03/13 Last Updated by: Aidee Garcia Gestational hypertension Delivery Date: 08/12/17 Last Updated by: Aidee Garcia Gestational hypertension Delivery Date: 08/26/20 Last Updated by: Melani Laird cs- breech, pre eclampsia, was supposed to have a tubal but it wasn't done. Visit Details Expected Delivery Route/Plan TOLAC if labor but planning RLTCS and BS title 19 signed patient counseled regarding risks/benefits of trial of labor versus repeat . ACOG/uptodate education given to patient. [] % likelihood of success per calculator TOLAC consent form signed: [] Plans Covid status: [] Flu vaccine: [] Tdap vaccine: [] Rhogam: [] LARC form signed: [] Problem list reviewed and updated with the most current plan of care details and appropriate orders placed. Relevant counseling for the gestational age provided. Continue routine care and follow up unless otherwise noted in visit notes/problem list details OB Flowsheet Initial Weight: Not Recorded Date -?-?-?-?-?-?-?-?--?-?-?-?- EGA Weight BP Urine Prot -?-?-?-?-?-?-?-?-?-?-?-?- Glucose FHR FuHt Pres Dilation -?-?-?-?-?-?-?-?-?-?-?-?- Effaced St Visit Note 07/13/22 -?-?-?-?-?-?-?-?-?-?-?-?- 8w 3d 253 lb 8 oz 135/98 -?-?-?-?-?-?-?-?-?-?-?-?- 160 -?-?-?-?-?-?-?-?-?-?-?-?- SM- CRL cons wit h LMP SM- CRL cons with LMP, start procardia 08/13/22 -?-?-?-?-?-?-?-?-?-?-?-?- 12w 6d 252 lb 8 oz 132/83 Nega tive -?-?-?-?-?-?-?-?-?-?-?-?- Negative 155 -?-?-?-?-?-?-?-?-?-?-?-?- JV- pt still hav ing discomfort with the ovarian mass and it is enlarging. Pt will be seeing MFM soon. They received the referral for scan and recommendations and will be calling her soon. If needs surgery, recommend MARKETING/SALES PERSON onc collaboration. bedside scan shows good movement but unable to visualize the ovary on the small ultrasound today. will prescribe pain medication until can get in with mfm but if pain increases past a 6,needs to call us sarbjit. 08/21/22 -?-?-?-?-?-?-?-?-?-?-?-?- 14w 0d 251 lb 140/85 Negative -?-?-?-?-?-?-?-?-?-?-?-?- Negative 150 -?-?-?-?-?-?-?-?-?-?-?-?- SM- patient rece ntly postop- had to have robot converted to open procedure, increased pain this morning. tolerating overall. 09/07/22 -?-?-?-?-?-?-?-?-?-?-?-?- 16w 3d 248 lb 2 oz 124/86 Trac e -?-?-?-?-?-?-?-?-?-?-?-?- Negative 145 -?-?-?-?-?-?-?-?-?-?-?-?- LC- no vb/crampi ng. pain managed. healing well. cont nausea, refill sent. discussed and declines afp. [facility] anatomy on 09/28. 10/07/22 -?-?-?-?-?-?-?-?-?-?-?-?- 20w 5d 253 lb 6 oz 135/87 Nega tive -?-?-?-?-?-?-?-?-?-?-?-?- Negative 154 -?-?-?-?-?-?-?-?-?-?-?-?- JV- needs follow up anatomy. no complaints today. 10/19/22 -?-?-?-?-?-?-?-?-?-?-?-?- 22w 3d 254 lb 130/80 Negative -?-?-?-?-?-?-?-?-?-?-?-?- Negative 148 -?-?-?-?-?-?-?-?-?-?-?-?- MH-No VB, LOF. D enies headache, vision changes. Is now having palpitations, EKG ordered. 11/02/22 -?-?-?-?-?-?-?-?-?-?-?-?- 24w 3d 257 lb 6 oz 131/75 Nega tive -?-?-?-?-?-?-?-?-?-?-?-?- Negative 140 -?-?-?-?-?-?-?-?-?-?-?--?- JV- no lof, vagi nal bleeding, or dec fm. no complaints. glucola ordered. 12/01/22 -?-?-?-?-?-?-?-?-?-?-?-?- 28w 4d 263 lb 142/86 134/86 Negative -?-?-?-?-?-?-?-?-?-?-?-?- Negative 140 -?-?-?-?-?-?-?-?-?-?-?-?- SM- no vb lof go od fm no regular ctx title 19 signed Physical Exam Const alert, oriented x3 and no apparent distress HEENT Head and Scalp: normocephalic and atraumatic Eyes EOMs intact bilaterally Neck full ROM and no lymphadenopathy Chest inspection of chest normal Resp normal respiratory effort GI GI Narrative: gravid, abdomen nontender, AGA Neuro no focal motor deficits Motor Exam: clonus absent NST FHR Rate Baby A Baseline: 140 Variability:: Moderate Accelerations:: 15 x 15 Decelerations:: None NST Reactive:: Yes FHR Category:: Category I Uterine Activity:: no regular Assessment & Plan (1) Proteinuria affecting : COMMENT: diagnosed in triage, rest of labs WNL and bps WNL, celestone given 12/10, 24 hour urine ordered. recommend weekly visits/nsts starting 30 weeks and twice weekly testing 32. home bp monitoring, reviewed preeclampsia precautions. (2) History of shoulder dystocia: COMMENT: with first delivery 10lbs, had 2 after without SD 9lb 8 lbs. 1 cs then for breech. (3) Hx of section: COMMENT: breech, pre e, plan RLTCS and BS, TOLAC is spontaneous labor. deliver 38 (4) Supervision of high-risk : QUALIFIERS: Trimester: second trimester Qualified Code(s): O09.92 - Supervision of high risk , unspecified, second trimester COMMENT: PRR , RASHID 02/19/23, [facility]- Leonardo Paul [place], [place] [facility]. RCS/Right Salpingectomy scheduled for 02/05/23. (5) : QUALIFIERS: Weeks of gestation: 28 weeks Qualified Code(s): Z3A.28 - 28 weeks gestation of COMMENT: nl anatomy, NIPT low risk, discussed carrier testing (6) Hypertension affecting in first trimester: COMMENT: Hx of PEC with last ,on procardia, recommend 81mg ASA 14 weeks. baseline labs done. plan weekly nsts and weekly bpps from 32 on, deliver 38 PLAN: Plan labs drawn and reviewed, give celestone x 2 due to proteinuria, fu next week. Charges/Coding Procedures Urinary/Genital 52xxx-59xxx: 81574-19 non-stress test Interp Multi Select Codes Visit Charges Office Visit/Consults: 86789 OV L3 Est
[2022-12-10] MEDS: Betamethasone/Betamethasone 30 MG/5 ML Vial 12 MG IM (15:22)
[2022-12-11 16:37] LABS: 24 Hour Urine Protein 402.5 mg/24HR (<150 MG/24HR); 24HR. UA Prot. Total Volume 1150 mL
== END 2022-12-10 15:25 | disposition home or self-care (01) ==
LOC: WPOUT 13:06 → WP 13:07
PROVIDERS: Visit Provider Obstetrics & Gynecology
DX: O99.891 Other specified diseases and conditions complicating pregnancy (principal); R55 Syncope and collapse; R51.9 Headache, unspecified; O12.13 Gestational proteinuria, third trimester; Z3A.28 28 weeks gestation of pregnancy; O13.3 Gestational [pregnancy-induced] hypertension without significant proteinuria, third trimester
CPT/HCPCS: 36415; 59025; 59050; 82565; 82570; 84156; 84450; 84460; 84550; 85027; 96372; 99221; G0378; J0702

== ENCOUNTER 2022-12-11 15:23 | Outpatient (CLI) | payer MEDICAID, SELFPAY ==
[2022-12-11 15:57] VITALS: BP 138/85; PULSE 95; TEMP 36.8
[2022-12-11 16:07] VITALS: BMI 42.1
[2022-12-11] MEDS: Betamethasone/Betamethasone 30 MG/5 ML Vial 12 MG IM (16:08)
== END 2022-12-11 16:15 | disposition home or self-care (01) ==
LOC: WPOUT 15:30 → WP 15:30
PROVIDERS: Referring Provider Advanced Practice Midwife; Visit Provider Advanced Practice Midwife
DX: O14.90 Unspecified pre-eclampsia, unspecified trimester (principal); Z3A.00 Weeks of gestation of pregnancy not specified
CPT/HCPCS: 96372; 99221; G0378; J0702

== ENCOUNTER 2022-12-13 09:00 | Outpatient (CLI) | payer MEDICAID, SELFPAY ==
[2022-12-13] VITALS (25 sets, daily range): BP systolic 140–167; BP diastolic 71–99; PULSE 70–94; RESP 16–18; TEMP 36.1–36.6; O2SAT 94–98; BMI 42.0
[2022-12-13] MEDS: Magnesium Sulfate 4gm/100mL 4 GM/100 ML IV.SOLN. IV (09:59)
[2022-12-13] MEDS: Lactated Ringers 1,000 ML 20 ML IV (10:00)
[2022-12-13] MEDS: Labetalol (Prefilled) 20 MG/4 ML IV (10:01)
[2022-12-13 10:05] LABS: Hematocrit 37.1 % (37-47); Hemoglobin 11.2 g/dL (12.0-15.0); Mean Corp Hgb Conc 30.2 g/dL (32-36); Mean Corpuscular Hgb 25.6 pg (27.0-32.0); Mean Corpuscular Volume 84.9 fL (81-99); Mean Platelet Vol. 9.4 fl (6.2-12.0); POSITIVE MORPHOLOGY YES; Platelet Count 341 K/mm3 (150-450); RBC Distribution Width CV 20.9 % (11.6-14.6); RBC Distribution Width SD 62.8 fl (35.1-43.9); Red Blood Count 4.37 M/mm3 (4.2-5.4); White Blood Count 13.7 K/mm3 (4.4-11.0)
[2022-12-13 10:16] LABS: AST(SGOT) 7 U/L (15-37); Alanine Aminotransfer ALT/SGPT 7 U/L (13-56); Creatinine, Serum 0.52 mg/dL (0.55-1.02); EST Glomerular Filtration Rate 147 mL/min (>60); Est Glom Filt Rate - Afr Amer 178 mL/min (>60); Estimated Creatinine Clearance 146.75 ml/min; Uric Acid 3.9 mg/dL (2.6-6.0)
[2022-12-13] MEDS: Magnesium Sulfate 4gm/100mL 2 GM/50 ML IV.SOLN. IV (10:18)
[2022-12-13] MEDS: Labetalol 100 MG Tablet PO (10:27)
[2022-12-13] MEDS: Magnesium Sulfate 20 GM/500 ML BAG IV (10:29)
[2022-12-13 10:34] LABS: Scan Indicated on CBC? Y/N YES- FLAGS NOTED
[2022-12-13 10:35] LABS: Differential Comment SCANNED
[2022-12-13 11:19] LABS: Protein, Urine (Random) 11.4 mg/dL (<11.9); Protein:Creat Ratio 489 mg/g CRE (0-200)
--- NOTE | 2022-12-13 13:42 | OB.TRI.HP_ITS ---
HPI - General General Date of Service: 12/13/22 HPI Narrative SHEILA TREJO, is a 32 F 30.2 weeks who presents to unit for decreased movement. [facility] BPs in severe range. Dr Heide Vail notified, Magnesium Sulfate orders given and pre e labs obtained. Dr Vail planning to come in to see patient and plan for transport to [facility] for preeclampsia Maternal Data Information RASHID Calculator Estimated Delivery Date Method Current WG Current Estimate 02/19/23 LMP (Certain) 30w 2d Other Estimates 02/19/23 Ultrasound #1 30w 2d Final RASHID: 02/19/23 Final RASHID Source: US >20 weeks Gestational age: 30.2 weeks [facility] Medical History (Updated 12/13/22 @ 13:50 by Marilou Morse CNM) Gestational hypertension Home Medications multivitamin no.47-iron fum 27 mg-folate no.1 1 mg-dha 300 mg capsule (PNV-DHA) 1 cap PO DAILY 02/20/20 [History Last Taken 10/11/22] nifedipine 30 mg tablet,extended release 30 mg PO DAILY #30 tabs 07/13/22 [Rx Last Taken 12/13/22] promethazine 12.5 mg tablet 12.5 mg PO TID PRN nausea and vomiting #60 tabs 09/07/22 [Rx Last Taken 12/10/22 05:00] Allergy/AdvReac Type Severity Reaction Status Date / Time No Known Allergies Allergy Verified 12/13/22 09:26 Surgical History (Updated 12/01/22 @ 14:38 by Marian Miller LPN) History of left salpingo-oophorectomy S/P laparoscopy S/P tonsillectomy [place] teeth extracted Social History adopted: No household members: significant other and family number of children: 4 current occupational status: unemployed pets and animals: Yes pets and animals: dog(s) history of recent travel: No sexually active: Yes Smoking Status: Never smoker alcohol intake: never substance use type: does not use well-balanced diet: daily or most days caffeine: No eating out: rarely or never during the past year weight has: decreased > 10 lbs what type of physical activity do you participate in: walking frequency: daily duration: 60-90 minutes/day jose daniel/hindu: Muslim seatbelt use: always do you feel safe at home: Yes additional social history: BF [employer]- [facility] Patient is [employer] History 6 Elective abortions Hx Para 4 Spontaneous abortions 1 Hx # Term Pregnancies Ectopic pregnancies Hx # Pregnancies Multiple births # of living children 4 Past Pregnancies Del. Date Name GA/Weeks Outcome Route Bth Weight Gen Labor Lgth Anesthesia Del Locatn Provider FOB 04/25/12 Jacquelyn 39 live - full term 10lbs 1oz Female epidural [place] [facility] 04/03/13 Kilan 39 live - full term 9lbs 7oz Male epi dural [place] [facility] 01/25/16 miscarriage 11wks(baby 8wks) 08/12/17 Elleanor 38 live - full term 8lbs 3oz Female epidural [place] [facility] 08/26/20 [place] 37 live - full term 7#4oz Female spinal [place] Bandar Delivery Date: 04/25/12 Last Updated by: Aidee Garcia Gestational hypertension, shoulder dystocia Delivery Date: 04/03/13 Last Updated by: Aidee Garcia Gestational hypertension Delivery Date: 08/12/17 Last Updated by: Aidee Garcia Gestational hypertension Delivery Date: 08/26/20 Last Updated by: Melani Laird cs- breech, pre eclampsia, was supposed to have a tubal but it wasn't done. Visit Details Expected Delivery Route/Plan TOLAC if labor but planning RLTCS and BS title 19 signed patient counseled regarding risks/benefits of trial of labor versus repeat . ACOG/uptodate education given to patient. [] % likelihood of success per calculator TOLAC consent form signed: [] Plans Covid status: [] Flu vaccine: [] Tdap vaccine: [] Rhogam: [] LARC form signed: [] Problem list reviewed and updated with the most current plan of care details and appropriate orders placed. Relevant counseling for the gestational age provided. Continue routine care and follow up unless otherwise noted in visit notes/problem list details OB Flowsheet Initial Weight: Not Recorded Date -?-?-?-?-?-?--?-?-?-?-?-?- EGA Weight BP Urine Prot -?-?-?-?-?-?-?-?-?-?-?-?- Glucose FHR FuHt Pres Dilation -?-?-?-?-?-?-?-?-?-?-?-?- Effaced St Visit Note 07/13/22 -?-?-?-?-?-?-?-?-?-?-?-?- 8w 3d 253 lb 8 oz 135/98 -?-?-?-?-?-?-?-?-?-?-?-?- 160 -?-?-?-?-?-?-?-?-?-?-?-?- SM- CRL cons wit h LMP SM- CRL cons with LMP, start procardia 08/13/22 -?-?-?-?-?-?-?-?-?-?-?-?- 12w 6d 252 lb 8 oz 132/83 Nega tive -?-?-?-?-?-?-?-?-?-?-?-?- Negative 155 -?-?-?-?-?-?-?-?-?-?-?-?- JV- pt still hav ing discomfort with the ovarian mass and it is enlarging. Pt will be seeing MFM soon. They received the referral for scan and recommendations and will be calling her soon. If needs surgery, recommend MANAGER UNDERWRITING onc collaboration. bedside scan shows good movement but unable to visualize the ovary on the small ultrasound today. will prescribe pain medication until can get in with mfm but if pain increases past a 6,needs to call us sarbjit. 08/21/22 -?-?-?-?-?-?-?-?-?-?-?-?- 14w 0d 251 lb 140/85 Negative -?-?-?-?-?-?-?-?-?-?-?-?- Negative 150 -?-?-?-?-?-?-?-?-?-?-?-?- SM- patient rece ntly postop- had to have robot converted to open procedure, increased pain this morning. tolerating overall. 09/07/22 -?-?-?-?-?-?-?-?-?-?-?-?- 16w 3d 248 lb 2 oz 124/86 Trac e -?-?-?-?-?-?-?-?-?-?-?-?- Negative 145 -?-?-?-?-?-?-?-?-?-?-?-?- LC- no vb/crampi ng. pain managed. healing well. cont nausea, refill sent. discussed and declines afp. [facility] on 09/28. 10/07/22 -?-?-?-?-?-?-?-?-?-?-?-?- 20w 5d 253 lb 6 oz 135/87 Nega tive -?-?-?-?-?-?-?-?-?-?-?-?- Negative 154 -?-?-?-?-?-?-?-?-?-?-?-?- JV- needs follow up anatomy. no complaints today. 10/19/22 -?-?-?-?-?-?-?-?-?-?-?-?- 22w 3d 254 lb 130/80 Negative -?-?-?-?-?-?-?-?-?-?-?-?- Negative 148 -?-?-?-?-?-?-?-?-?-?-?-?- MH-No VB, LOF. D enies headache, vision changes. Is now having palpitations, EKG ordered. 11/02/22 -?-?-?-?-?-?-?-?-?-?-?-?- 24w 3d 257 lb 6 oz 131/75 Nega tive -?-?-?-?-?-?-?-?-?-?-?-?- Negative 140 -?-?-?-?-?-?-?-?-?--?-?-?- JV- no lof, vagi nal bleeding, or dec fm. no complaints. glucola ordered. 12/01/22 -?-?-?-?-?-?-?-?-?-?-?-?- 28w 4d 263 lb 142/86 134/86 Negative -?-?-?-?-?-?-?-?-?-?-?-?- Negative 140 -?-?-?-?-?-?-?-?-?-?-?-?- SM- no vb lof go od fm no regular ctx title 19 signed ROS Constitutional Constitutional: Reports fatigue and headache(s); Denies fever(s) Eyes Eyes: Denies change in vision ENT HEENT: Reports headache(s); Denies dizziness Cardiovascular Cardiovascular: Reports fatigue and lightheadedness; Denies chest pain or dyspnea Respiratory/Chest Respiratory/Chest: Reports systems reviewed and no addt'l complaints, except as documented; Denies change in mental status Gastrointestinal Gastrointestinal: Reports systems reviewed and no addt'l complaints, except as documented Genitourinary Genitourinary: Reports movement Details: decreased; Denies contractions or difficulty urinating Musculoskeletal Musculoskeletal: Reports systems reviewed and no addt'l complaints, except as documented Integumentary Integumentary: Reports systems reviewed and no addt'l complaints, except as documented Neurologic Neurologic: Reports dizziness, headache(s) and other visual disturbances Psychiatric Psychiatric: Reports systems reviewed and no addt'l complaints, except as documented Physical Exam Const alert, oriented x3 and no apparent distress Eyes no papilledema General Eye: normal appearance of both eyes Periorbital: periorbital findings normal Resp normal respiratory effort, normal air movement, no retractions and no use of accessory muscles GI soft to palpation and non-tender Palpation: soft; Negative for tender Narrative: uterus soft on palpation, no contractions, + movement Manual OB Exam: estimated gestational size appropriate Uterus Palpation: Negative for uterus tender or uterus hypertonus Extremity normal to inspection, full ROM, no calf tenderness and no pedal edema Peripheral Pulses: Yes pulses 2+ throughout Skin no rashes or lesions noted Neuro moves all extremities and deep tendon reflexes 2+ bilaterally Psych mental status grossly normal, thought process normal and cooperative Appearance: grossly normal NST FHR Rate Baby A Baseline: 140 Variability:: Moderate Accelerations:: 10 x 10 Decelerations:: None NST Reactive:: Appropriate for gestational age FHR Category:: Category I Uterine Activity:: none Assessment & Plan (1) Pre-eclampsia affecting , antepartum: COMMENT: 30.2 weeks severe range pressures with headache. Transported to [facility]. PLAN: HTN protocol started Referred to Dr Vail for management (2) Proteinuria affecting : COMMENT: diagnosed in triage, rest of labs WNL and bps WNL, celestone given 12/10, 24 hour urine ordered. recommend weekly visits/nsts starting 30 weeks and twice weekly testing 32. home bp monitoring, reviewed preeclampsia precautions. (3) Intermittent palpitations: COMMENT: EKG WNL. Increase fluids. (4) Anemia affecting , antepartum: COMMENT: Fe OTC alternate PNV, rpt CBC 4 wks not tolerating currently iron supplement. recommended floradix. (5) Ovarian cyst affecting in first trimester, antepartum: COMMENT: large ovarian mass with septations, increasing in size to see MFM then possibly patient financial services coordinator onc pending their recommendations. 08/18/22 Dr. Rivas Left salpingo-oophorectomy. (6) History of shoulder dystocia: COMMENT: with first delivery 10lbs, had 2 after without SD 9lb 8 lbs. 1 cs then for breech. (7) Hx of section: COMMENT: breech, pre e, plan RLTCS and BS, TOLAC is spontaneous labor. deliver 38 (8) Hx of depression, currently : COMMENT: x 2 (9) Supervision of high-risk : QUALIFIERS: Trimester: second trimester Qualified Code(s): O09.92 - Supervision of high risk , unspecified, second trimester COMMENT: PRR , RASHID 02/19/23, [facility]- Leonardo Paul [place], [place] [facility]. RCS/Right Salpingectomy scheduled for 02/05/23. (10) : QUALIFIERS: Weeks of gestation: 28 weeks Qualified Code(s): Z3A.28 - 28 weeks gestation of COMMENT: nl anatomy, NIPT low risk, discussed carrier testing (11) Hypertension affecting in first trimester: COMMENT: Hx of PEC with last ,on procardia, recommend 81mg ASA 14 weeks. baseline labs done. plan weekly nsts and weekly bpps from 32 on, deliver 38 (12) Nausea/vomiting in : COMMENT: will trial zofran 4mg for during the day every 6 hours. declines IV hydration today. able to keep liquids down and light meals. (13) Anxiety and depression: COMMENT: stable no meds Charges/Coding Visit Charges Office Visits / Consults: 43676 OV L3 Est Multi [facility] Codes Urinary/Genital Urinary/Genital CPT Codes: 31552-88 non-stress test Interp
--- NOTE | 2023-01-05 09:49 | NURSING ---
Adjusted stop time on Magnesium Sulfate on the MAR after validating. Stop time needed entered for billing purposes.
== END 2022-12-13 11:16 | disposition short-term general hospital (02) ==
LOC: OBT 09:18 → WP 09:19
PROVIDERS: Visit Provider Advanced Practice Midwife
DX: O36.8130 Decreased fetal movements, third trimester, not applicable or unspecified (principal); Z3A.30 30 weeks gestation of pregnancy; O99.891 Other specified diseases and conditions complicating pregnancy; R51.9 Headache, unspecified; O26.813 Pregnancy related exhaustion and fatigue, third trimester; R42 Dizziness and giddiness; H53.9 Unspecified visual disturbance; O14.93 Unspecified pre-eclampsia, third trimester; O12.13 Gestational proteinuria, third trimester; R00.2 Palpitations; O99.013 Anemia complicating pregnancy, third trimester; O34.83 Maternal care for other abnormalities of pelvic organs, third trimester; N83.209 Unspecified ovarian cyst, unspecified side; O21.9 Vomiting of pregnancy, unspecified; O99.343 Other mental disorders complicating pregnancy, third trimester; F41.9 Anxiety disorder, unspecified; F32.A Depression, unspecified
CPT/HCPCS: 96365; 96366; 96375; 36415; 59025; 59050; 82565; 82570; 84156; 84450; 84460; 84550; 85027; 86850; 86900; 86901; 99221; J7120; G0378